=== PATIENT | male | born 1965 | race Caucasian/White ===

== ENCOUNTER 2019-07-31 13:20 | Emergency (ER) | payer BC ==
--- NOTE | 2019-07-31 13:33 | Emergency Department Record ---
History of Present Illness - General Chief complaint: Extremity Problem Stated complaint: RT BICEP PAIN Time Seen by Provider: 07/31/19 13:21 Source: Patient Mode of Arrival: Ambulatory Limitations: No limitations - History of Present Illness Initial comments: The patient is here due to R arm pain for a day. He was trying to tackle someone yesterday playing football and believes he tore his R bicep muscle. He denies any other injury. There was no head injury or direct trauma to the arm. MD Complaint: Extremity pain Onset/Timin -: Days(s) Location: Right, Arm Severity scale (1-10): 8 Quality: Aching Consistency: Constant Improves with: Immobilization Worsens with: Exertion Associated Symptoms: Denies other symptoms - Related Data Allergies Allergy/AdvReac Type Severity Reaction Status Date / Time No Known Allergies Allergy no Unverified 07/31/19 13:25 allergies Travel Screening - Travel/Exposure Within Last 30 Days Have you traveled within the last 30 days?: No Review of Systems Constitutional: Denies: Chills, Fever Eyes: Denies: Eye discharge ENT: Denies: Congestion Respiratory: Denies: Cough, Dyspnea Past Medical History - SOCIAL HISTORY Smoking Status: Never smoker Alcohol Use: None Drug Use: None - RESPIRATORY Hx Respiratory Disorders: No - CARDIOVASCULAR Hx Cardio Disorders: No - NEURO Hx Neuro Disorders: No - GI Hx GI Disorders: No - Hx Genitourinary Disorders: No - ENDOCRINE Hx Endocrine Disorders: No - MUSCULOSKELETAL Hx Musculoskeletal Disorders: No - PSYCH Hx Psych Problems: No - HEMATOLOGY/ONCOLOGY Hx Hematology/Oncology Disorders: No Family Medical History Any Significant Family History?: No Physical Exam - General General Appearance: Alert, Oriented x3, Cooperative, No acute distress - Head Head exam: Atraumatic, Normocephalic, Normal inspection - Eye Eye exam: Normal appearance, PERRL - Neck Neck exam: Normal inspection, Full ROM. negative: Tenderness - Respiratory Respiratory exam: Normal lung sounds bilaterally. negative: Respiratory distress - Cardiovascular Cardiovascular Exam: Regular rate, Normal rhythm, Normal heart sounds - Extremities Extremities exam: Normal capillary refill, Tenderness (There is tenderness to the distal anterior R arm at the bicep tendon insertion with significant bruising present. There is decreased ROM of the R arm and shoulder due to pain.), Other (The R arm is NVI.). negative: Normal inspection, Full ROM Image of Full Body: 1 - Area of pain, tenderness and bruising. - Neurological Neurological exam: Alert. negative: Motor sensory deficit Course Vital Signs 07/31/19 13:22 Temperature 98.1 F Pulse Rate 83 Respiratory 20 Rate Blood Pressure 148/91 Pulse Ox 99 - Reevaluation(s) Reevaluation #1: I did discuss the patient with Dr. Zuniga and he agrees with the plan to see the patient in the clinic in 3 days. The patient is to keep the R arm in a sling until 07/31/19 14:21 Medical Decision Making - Data Complexity MDM Data: X-Ray Ordered and/or Reviewed - Radiology Data Radiology results: Report reviewed (R elbow and shoulder: Neg for any acute changes.) Disposition Disposition: Discharge Clinical Impression: Biceps tendon rupture Qualifiers: Encounter type: initial encounter Laterality: right Qualified Code(s): S46.211A - Strain of muscle, fascia and tendon of other parts of biceps, right arm, initial encounter Disposition: Home, Self-Care Condition: (2) Stable Instructions: Tendon Rupture (ED) Additional Instructions: Please keep the R arm in a sling and use your home pain medicine. Please see Dr. Zuniga in the [facility]ty [facility] on Thursday. Return to the ER for any worsening symptoms. Referrals: [facility] Specialty Clinics [Provider Group] Rodriguez Zuniga [DOCTOR OF OSTEOPATH] - Forms: Patient Portal Access Time of Disposition: 14:17 Quality - Quality Measures Quality Measures: N/A - Blood Pressure Screening View Details: Yes Does Patient Have Any of the Following: No Blood Pressure Classification: Hypertensive Reading Systolic Measurement: 148 Diastolic Measurement: 91 Screening for High Blood Pressure: < First Hypertensive BP, F/U Documented > [[id number]] First Hypertensive Follow-up Interventions: Referral to alternative/primary care provider.
--- NOTE | 2019-08-01 17:36 | RADIOLOGY REPORT ---
STUDY: Right shoulder 3 views. CLINICAL HISTORY: Pain with decreased range of motion post injury. TECHNIQUE: Three views of the right shoulder. COMPARISON: Two-view chest radiographic examination dated 03/23/2012. ENCOUNTER: Initial. FINDINGS: There is normal bone mineralization. No acute fracture, dislocation, or destructive bone lesion is seen. Early marginal spurring of the glenohumeral joint is questioned. No periarticular erosion. No focal soft tissue abnormality. IMPRESSION: No acute fracture nor dislocation. Early arthritic spurring of the glenohumeral joint questioned. MTDD
--- NOTE | 2019-08-01 17:36 | RADIOLOGY REPORT ---
STUDY: Right elbow 4 views. CLINICAL HISTORY: Generalized right elbow pain and bruising with limited range of motion one day post injury. TECHNIQUE: Four views of the right elbow. COMPARISON: None. ENCOUNTER: Initial. FINDINGS: There is normal bone mineralization. No acute fracture nor dislocation. Early marginal spurring of the medial compartment. The articular relations are otherwise maintained. No convincing anterior nor posterior fat pad sign. There is medial soft tissue swelling. IMPRESSION: No convincing acute fracture nor dislocation. No elbow joint effusion. Medial soft tissue swelling. MTDD
== END 2019-07-31 14:28 | disposition home or self-care (01) ==
LOC: ER 13:20
DX: S46.211A Strain of muscle, fascia and tendon of other parts of biceps, right arm, initial encounter (principal); M25.521 Pain in right elbow; W03.XXXA Other fall on same level due to collision with another person, initial encounter; Y93.61 Activity, american tackle football
CPT/HCPCS: 99284

== ENCOUNTER 2019-08-09 06:22 | Day surgery (SDC) | payer BC ==
[~2019-08-09 06:22] MED LIST: ACETAMINOPHEN 1,000 MG/100 ML BTL IVPB ONE
[2019-08-09] MEDS ORDERED: ROPIVACAINE HCL (NAROPIN) /PF 5MG/ML 20ML VIAL IV ONE (06:23)
[2019-08-09] MEDS ORDERED: EPHEDRINE SULFATE 50 MG/ML ML IV ONE (06:23)
[2019-08-09] MEDS ORDERED: LIDOCAINE 2% MDV (20MG/ML) 20ML VIAL IV ONE (06:23)
[2019-08-09] MEDS ORDERED: PROPOFOL 10 MG/ML VIAL IV ONE (06:23)
[2019-08-09] MEDS ORDERED: MIDAZOLAM HCL 2MG/2ML VIAL IV ONE (06:23)
[2019-08-09] MEDS ORDERED: DEXAMETHASONE 4 MG/ML 1ML VIAL IVP ONE ×2 (06:23)
[2019-08-09] MEDS ORDERED: FENTANYL PF 100MCG/2ML VIAL IV ONE (06:23)
[2019-08-09] MEDS ORDERED: DESFLURANE 240 ML BTL INH ONE (06:23)
[2019-08-09] MEDS ORDERED: ONDANSETRON HCL IV 4 MG/2 ML VIAL IVP ONE (06:23)
[2019-08-09] MEDS ORDERED: ACETAMINOPHEN 1,000 MG/100 ML BTL IVPB ONE (06:30)
[2019-08-09] MEDS ORDERED: RINGERS SOLUTION,LACTATED 1,000 ML IV ONE ×2 (06:47→08:20)
--- NOTE | 2019-08-09 10:33 | Operative Note ---
DATE OF SURGERY: 08/09/2019 SURGEON: Rodriguez Zuniga D.O. REFERRING PHYSICIAN: Ck Ortiz D.O. PREOPERATIVE DIAGNOSIS: RUPTURE OF THE DISTAL BICEPS TENDON RIGHT ARM. POSTOPERATIVE DIAGNOSIS: RUPTURE OF THE DISTAL BICEPS TENDON RIGHT ARM. OPERATION: OPEN REPAIR DISTAL BICEPS TENDON RIGHT ARM. DESCRIPTION: This 54-year-old male was taken to the Operating Room and placed in the supine position on the operating room table. General anesthetic was administered and the right upper extremity was elevated, prepped with Hibiclens and draped in the usual sterile fashion. The arm was exsanguinated and the tourniquet was inflated to 250 mmHg. A "L" type incision was made across the antecubital fossa and extending up proximally along the medial aspect to give us excellent exposure. Blunt and sharp dissection was carried down to the distal biceps stump which was easily identified. Seroma was evacuated from the wound. The tendon was easily grasped and pulled into view and the end of the tendon debrided to healthy appearing tendon. We then used a #2 FiberWire suture and placed a Krackow type stitch through the tendon giving us excellent purchase of the tendon. We then directed our attention posteriorly making a longitudinal incision about 1 cm radial to the ulna and dissection was carried down through the skin and subcutaneous tissue. Hemostasis was obtained with the electrocautery. The muscle was divided to expose the radial tuberosity without difficulty. This was debrided from torn fragments of tendon and a drill hole was placed in the center of the styloid and then a larger drill bit to accommodate the tendon was used to open the canal of the radius under the styloid. On the opposite side of the bone two smaller drill holes which were about 2-3 mm each were made leaving a bridge of approximately three-quarters of a centimeter in between. This was thoroughly debrided to remove all clot and debris from the wound from the drilling. Subsequently a Lynda was passed on the ulnar side of the radius to the antecubital fossa without difficulty and the two sutures which had been placed in the tendon were grasped and pulled through the wound. We then easily pulled the tendon back down into the wound and a single limb of each of the sutures were then passed through the larger hole in the tuberosity and then out the two smaller holes. and traction was placed on the sutures to bring the tendon down into the defect made in the radius at the level of the tuberosity. Mami tight fit of the tendon was noted and then the sutures were tied over a bone bridge on the opposite side of the tuberosity. We had excellent purchase and excellent position and alignment was subsequently noted of the tendon at completion. The wound was irrigated thoroughly with lactated Ringer's solution and the fascia was closed with 4-0 Vicryl as was the subcutaneous tissue and the skin was closed posteriorly with 4-0 nylon suture. We then placed 4-0 Vicryl in the subcutaneous tissue anteriorly and closed the skin with 4-0 nylon suture. We were careful not to place too much stretch on the repaired tendon. Subsequently a plaster splint was applied with the elbow flexed at 90 degrees in slight supination and the patient was placed in a sling. He was then taken to the Recovery Room in satisfactory condition. GROSS PATHOLOGY: This patient had a distal rupture of his biceps tendon which was repaired using the standard two incision technique. JOB NUMBER: [id number] MTDD
== END 2019-08-09 10:21 | disposition home or self-care (01) ==
LOC: SUR 06:22
PROVIDERS: ATTEND Orthopaedic Surgery
DX: S46.291A Other injury of muscle, fascia and tendon of other parts of biceps, right arm, initial encounter (principal)
CPT/HCPCS: 76942; J2405; J7120

== ENCOUNTER 2019-11-03 08:09 | Day surgery (SDC) | payer BC ==
[2019-11-03] MEDS ORDERED: PROPOFOL 10 MG/ML VIAL IV ONE (08:10)
[2019-11-03] MEDS ORDERED: LIDOCAINE 2% MDV (20MG/ML) 20ML VIAL IV ONE (08:10)
--- NOTE | 2019-11-04 15:20 | Operative Note ---
OPERATION: COLONOSCOPY with cold snare polypectomy. PREOPERATIVE DIAGNOSIS: Colon cancer screening. POSTOPERATIVE DIAGNOSES: 1. Transverse colon polyp. 2. Sigmoid diverticulosis. PREPARATION QUALITY: Good to excellent. ESTIMATED BLOOD LOSS: Minimum. SPECIMENS: Proximal transverse colon polyp. COMPLICATIONS: None apparent. PROCEDURE: After informed consent was obtained from the patient, he was placed in the left lateral decubitus position in the endoscopy suite, sedated and monitored by the department of anesthesia. Digital rectal examination was unremarkable. A well-lubricated [id number] colonoscope was inserted into the rectum and advanced to the cecum. The cecum, cecal bulb, ileocecal valve, appendiceal orifice, and ascending colon were unremarkable. In the proximal transverse colon, there was a 7 mm sessile polyp removed in piecemeal fashion with a cold snare. The polyp was retrieved. No excessive bleeding was noted. The remainder of the transverse colon, descending colon, sigmoid colon, and rectum were carefully inspected revealing [id number] sigmoid diverticulosis. J-turn views of the anorectum were unremarkable. The endoscope was straightened, the rectal ampulla deflated, and the endoscope was removed. RECOMMENDATIONS: I would suggest the patient follow a high-fiber diet. He will require repeat exam in 3-5 years pending tissue histology. As always, thank you for allowing me to participate in the healthcare of your patients. LYUDMILA
== END 2019-11-03 09:54 | disposition home or self-care (01) ==
LOC: HOP 08:09
PROVIDERS: ATTEND Internal Medicine Gastroenterology
DX: Z12.11 Encounter for screening for malignant neoplasm of colon (principal); D12.3 Benign neoplasm of transverse colon; K57.30 Diverticulosis of large intestine without perforation or abscess without bleeding